=== PATIENT | male | born 1945 | race Caucasian/White ===

== ENCOUNTER 2021-02-03 05:21 | Day surgery (SDC) | payer OTHER ==
[2021-02-02 17:50] VITALS: BMI 27.1
[2021-02-03] MEDS ORDERED: MIDAZOLAM HCL 2 MG/2 ML SINGLE DOSE VIAL ONE (08:56)
[2021-02-03] MEDS ORDERED: PROPOFOL 20 ML ONE (08:56)
[2021-02-03] MEDS ORDERED: SEVOFLURANE 250 ML BTL ONE (08:57)
[2021-02-03] MEDS ORDERED: GENTAMICIN SO4 80 MG/2 ML VIAL ONE (09:06)
[2021-02-03] MEDS ORDERED: ceFAZolin SODIUM 1 GM VIAL IVPB ONE (09:35)
[2021-02-03] MEDS ORDERED: DEXAMETHASONE SOD PHOSPHATE 4 MG/1 ML VIAL ONE (09:40)
[2021-02-03] MEDS ORDERED: GENTAMICIN 80MG PREMIX BAG IVPB ONE (09:40)
[2021-02-03] MEDS ORDERED: ceFAZolin SODIUM 1 GM VIAL ONE (09:40)
[2021-02-03] MEDS ORDERED: IOHEXOL 300 MG/ML INFUS..BTL IV ONE (09:50)
[2021-02-03] MEDS ORDERED: FUROSEMIDE 40 MG/4 ML INJECTABLE VIAL ONE (09:57)
[2021-02-03] MEDS ORDERED: oxyCODONE HCL 5 MG TABLET PO PRN ×2 (10:44→10:49)
[2021-02-03] MEDS ORDERED: DEXTROSE 5%-0.45% SALINE 1,000 ML IV SCH (10:45)
[2021-02-03] MEDS ORDERED: ONDANSETRON 4 MG/2 ML VIAL IVPUSH PRN (10:49)
[2021-02-03 12:09] VITALS: PULSE 56
[2021-02-03 12:59] VITALS: BP 116/71; TEMP 97.9
== END 2021-02-03 13:05 | disposition home or self-care (01) ==
LOC: JASU-SURG 05:21
PROVIDERS: ATTEND Urology
PROC: 0TC68ZZ Extirpation of Matter from Right Ureter, Via Natural or Artificial Opening Endoscopic (ICD-10-PCS; principal; 2021-02-03 10:00)
PROC: 0T768DZ Dilation of Right Ureter with Intraluminal Device, Via Natural or Artificial Opening Endoscopic (ICD-10-PCS; 2021-02-03 10:00)
DX: N20.1 Calculus of ureter (principal)
CPT/HCPCS: 36415; 76000-TC-FY; 82360; 88300-TC; 94760